=== PATIENT | male | born 1995 | race American Indian/Alaskan Native ===

== ENCOUNTER 2021-04-07 08:00 | Outpatient (CLI) | payer OTHER | END 2021-04-07 08:30 | disposition home or self-care (01) | LOC: PPH VACUNA 08:00 | DX: Z23 Encounter for immunization (principal) ==

== ENCOUNTER 2021-04-27 08:00 | Outpatient (CLI) | payer OTHER | END 2021-04-27 08:30 | disposition home or self-care (01) | LOC: PPH VACUNA 08:00 | DX: Z23 Encounter for immunization (principal) ==

== ENCOUNTER 2021-10-12 08:45 | Emergency (ER) | payer OTHER ==
[~2021-10-12] VITALS: Ht 167.6 cm; Wt 63.5 kg
[2021-10-12] MEDS ORDERED: ZITHROMAX TRI-500 MG PO (10:29)
== END 2021-10-12 10:34 | disposition home or self-care (01) ==
LOC: ER
DX: U07.1 COVID-19 (principal)

== ENCOUNTER 2023-07-30 09:53 | Emergency (ER) | payer OTHER ==
[~2023-07-30] VITALS: Ht 167.6 cm; Wt 63.5 kg
[~2023-07-30 09:53] MED LIST: ZITHROMAX TRI-500 MG PO
== END 2023-07-30 14:55 | disposition home or self-care (01) ==
LOC: ER 09:53
DX: R07.81 Pleurodynia (principal); Z91.013 Allergy to seafood